=== PATIENT | female | born 1985 | race Caucasian/White ===

== ENCOUNTER 2016-12-18 20:56 | Emergency (ER) | payer SELFPAY ==
--- NOTE | ~2016-12-18 | CT4 ---
[facility] A Service of [facility] RADIOLOGY TEXT RESULTS PATIENT: BARNEY MAYS LOCATION: [facility] : 87 UNIT #: [id number] AGE: [address]: Nghia Martini DO SEX: F ORDER DR: [id number] [facility] [address] [place], [place] [address] [id number] E MR#: [id number] Acc #: [id number] NAME: BARNEY MAYS : 1985 SEX: F STUDY DATE/TIME: 12/18/2016 19:59 UNIT: [facility] ROOM: STUDY DESCRIPTION: CT Abd and Pelv Wo Cont Attending Physician: Nghia Martini D.O. Ordering Physician: Nghia Martini D.O. Primary Care Physician: No Primary Care Physician MEDICAL IMAGING REPORT This report is preliminary unless electronic signature is present EXAM CT abdomen and pelvis about contrast. Date: 12/18/2016. HISTORY 31-year-old female who passed kidney stone this morning. However, pain has not improved. Complains of right back and flank pain. Previous history of hydronephrosis. COMPARISON CT abdomen and pelvis without contrast 08/06/2011. PROCEDURE 3 mm noncontrast axial images through the abdomen and pelvis. Enteric contrast not administered. Sagittal and coronal reformed images were obtained. This CT exam was performed with one or more of the following radiation dose reduction techniques: automatic exposure control, adjustment of mA and/or kV according to patient size, and iterative reconstruction. FINDINGS Abdomen findings: No right or left renal or ureteral stone, hydronephrosis, hydroureter or perinephric inflammation is seen. The appendix is normal. Noncontrast appearance of the liver, spleen, pancreas, adrenals within normal limits. Cholecystectomy. Imaged lung bases are clear. Unopacified bowel appears non-thickened and noninflamed. No pathologic adenopathy is seen. Pelvis: Findings: Trace pelvic free fluid is nonspecific. Urinary bladder, uterus and rectum are normal. No pelvic adenopathy. No acute osseous abnormality. IMPRESSION [facility] A Service of [facility] RADIOLOGY TEXT RESULTS PATIENT: BARNEY MAYS [id number] : [birth year] UNIT #: [id number] AGE: [address]: Nghia Martini DO SEX: F ORDER DR: 1. Small quantity pelvic free fluid is nonspecific and may be physiologic. 2. No urinary tract stone or hydronephrosis or perinephric inflammation. 3. The appendix is normal. Dictated by... Josette Jeffers M.D. THIS IS AN ELECTRONICALLY VERIFIED REPORT Josette Jeffers M.D. at 12/19/2016 2:09 PM ASHWIN/rolando TD: 12/19/2016 09:09 JOB #: [id number] MEDICAL IMAGING REPORT COPY
[2016-12-18 19:22] LABS: BASOPHIL# 0.1 X10e3 (0-0.3); BASOPHIL% 0.9 % (0-2.5); EOSINOPHIL# 0.1 X10e3 (0-0.7); EOSINOPHIL% 0.6 % (0.0-7.0); HEMOGLOBIN 14.6 gm/dL (12.0-16.0); LYMPHOCYTE% 27.8 % (17.0-45.0); MEAN CELL VOLUME 99.1 FL (83-96); MEAN CORPUSCULAR HEMOGLOBIN 32.9 PG (28-34); MEAN CORPUSCULAR HGB CONC 33.2 g/dL (30-36); MEAN PLATELET VOLUME 8.8 FL (6.5-11.5); MONOCYTE# 0.7 X10e3 (0-1.0); MONOCYTE% 6.5 % (3.0-12.0); NEUTROPHIL# 6.8 X10e3 (1.5-7.1); NEUTROPHIL% 64.2 % (40-75); PLATELET COUNT 256 X10e3 (140-420); RED BLOOD COUNT 4.44 X10e (3.90-5.30); RED CELL DISTRIBUTION WIDTH 13.8 % (11.0-15.5); WHITE BLOOD COUNT 10.6 X10e3 (4.0-10.5)
[2016-12-18 19:30] LABS: DIFF IND NO
[2016-12-18 19:42] LABS: URINE SOURCE CLEAN CATCH
[2016-12-18 19:47] LABS: URINE APPEARANCE CLEAR; URINE BILIRUBIN NEG (NEG); URINE BLOOD NEG (NEG); URINE COLOR YELLOW; URINE GLUCOSE NEG (NEG); URINE KETONE TRACE (NEG); URINE LEUKOCYTE ESTERASE NEG (NEG); URINE NITRATE NEG (NEG); URINE PROTEIN NEG (NEG); URINE SPECIFIC GRAVITY 1.027 (1.003-1.035)
[2016-12-18 19:51] LABS: ALBUMIN SERUM 4.1 g/dL (3.5-5.0); ALKALINE PHOSPHATASE 68 U/L (32-92); ALT (SGPT) 21 U/L (10-40); AST (SGOT) 23 U/L (10-42); BILIRUBIN, DIRECT 0.3 mg/dL (0.0-0.2); BILIRUBIN,INDIRECT 0.3 mg/dL (0.0-0.9); BILIRUBIN,TOTAL 0.6 mg/dL (0.2-2.0); BLOOD UREA NITROGEN 10 mg/dL (9-23); BUN/CREATININE RATIO 11.11; CALCIUM SERUM 9.1 mg/dL (8.4-10.2); CARBON DIOXIDE 26 mmol/L (22-31); CHLORIDE 109 mmol/L (100-111); CREATININE SERUM 0.9 mg/dL (0.6-1.4); GLOM FILT RATE Estimated ABOVE60 mL/min (>60); GLUCOSE FASTING 88 mg/dL (70-110); LIPASE 19 U/L (22-51); POTASSIUM 4.3 mmol/L (3.5-5.1); PROTEIN TOTAL SERUM 8.1 g/dL (6.0-8.3); SODIUM 138 mmol/L (135-145)
[2016-12-18 20:13] LABS: CULTURE INDICATED? NO
== END 2016-12-18 22:16 | disposition home or self-care (01) ==
LOC: CED 20:56
PROVIDERS: Emergency Medicine
DX: R10.9 Unspecified abdominal pain (principal); F17.200 Nicotine dependence, unspecified, uncomplicated; Z98.890 Other specified postprocedural states; Z87.442 Personal history of urinary calculi; Z91.040 Latex allergy status; Z88.8 Allergy status to other drugs, medicaments and biological substances
CPT/HCPCS: 36415; 74176; 80048; 80076; 81003; 83690; 84703; 85025; 96361; 96374; 96375; 99284; J1885; J2270; J2550